=== PATIENT | male | born 1990 | race Caucasian/White ===

== ENCOUNTER → 2017-08-31 | Outpatient (CLI) | payer BC ==
--- NOTE | 2017-08-31 16:27 | RADRPT ---
PROCEDURE: CT Brain without. CLINICAL INDICATION: Headache and dizziness. TECHNIQUE: A CT of the brain was performed on multidetector high-resolution CT scanner utilizing a xial sections from the skull base through the vertex without contrast. The scan was reviewed in sof t tissue brain and high frequency resolution bone algorithm windows. Images were reviewed on a high -resolution PACS workstation. One or more the following does reduction techniques were utilized: Aut omated exposure control, adjustment of the mA/ or kV according to patient's size, or use of iterativ e reconstruction technique. The exam CTDI = 44.58 mGy and the DLP = 720.23 mGy-cm. COMPARISON: None available. FINDINGS: The ventricles and sulci are age-appropriate. There is no intracranial hemorrhage, mass effect or mi dline shift. No abnormal intra-axial or extra-axial fluid collections are seen. The leiva/white a[place] er differentiation is preserved. No acute skull abnormality is noted. The visualized paranasal sinus es are essentially clear. IMPRESSION: 1. No acute intracranial hemorrhage, transcortical infarction or mass effect. RPTAT: [facility] .Windy Hinds MD, MD Date Time Electronically viewed and signed by .Windy Hinds MD, MD on 08/31/2017 16:27 .N/
== END | disposition home or self-care (01) ==
LOC: C/S 11:17
PROVIDERS: ATTEND Internal Medicine
DX: R51 Headache (principal); R42 Dizziness and giddiness
CPT/HCPCS: 70450